=== PATIENT | male | born 1990 | race American Indian/Alaskan Native ===

== ENCOUNTER 2017-10-07 13:32 | Emergency (ER) | payer SELFPAY ==
--- NOTE | 2017-10-07 14:06 | Emergency Department Report ---
Chief Complaint: Rectal Pain Stated Complaint: PAINFUL RECTUM - HPI History of Present Illness: This is a 27, white male that presents with rectal pain 1 week. Patient stated he has been constipated for more than a week and has been taking over-the -counter laxatives and stool softener with no relief. Patient also then stated that he seen slight blood and pus in the bowel movement and describes it as hard. Patient denies any abdominal pain, chest pain, shortness of breath, numbness, tingling, fever, chills, nausea or vomiting. - Exam Vital Signs: Vital Signs 10/07/17 13:54 Temperature 98 F Pulse Rate 73 Respiratory 18 Rate Blood Pressure 119/70 O2 Sat by Pulse 100 Oximetry Physical Exam: GENERAL: The patient is a well-developed, well-nourished female in no apparent distress. Patient is alert and acting appropriately for age. Alert and oriented 3, no apparent distress, normal gait, atraumatic. ABDOMEN: Soft, nontender, and nondistended. Positive bowel sounds. No hepatosplenomegaly was noted. No guarding or rebound tenderness, negative epigastric bruit. Negative psoas sign, negative call sign, negative McBurneys sign Rectal; about 1 cm induration and fluctuance to the rectal region. No hemorrhoids noted. MSE screening note: Focused history and physical exam performed. Due to findings the following was ordered: 1- This initial assessment/diagnostic orders/clinical plan/ treatment(s) is/are subject to change based on pt's health status, clinical progression and re- assessment by fellow clinical providers in the ED. Further treatment and workup at subsequent clinical provers discretion. Patient/guardians urged not to elope from ED as their condition may be serious if not clinically assessed and managed. 2-CBC, BMP, UA 3-abdominal x-ray ED Disposition for MSE Condition: Stable
[2017-10-07 14:20] LABS: Basophils % (Auto) 0.7 % (0.0-1.8); Eosinophils % (Auto) 0.5 % (0.0-4.3); Hematocrit 42.4 % (35.5-45.6); Hemoglobin 14.2 gm/dl (11.8-15.2); Mean Corpuscular HGB Conc 34 % (32-34); Mean Corpuscular Hemoglobin 31 pg (28-32); Mean Corpuscular Volume 92 fl (84-94); Platelet Count 249 K/mm3 (140-440); Red Cell Distribution Width 14.9 % (13.2-15.2); White Blood Count 11.2 K/mm3 (4.5-11.0)
[2017-10-07 14:36] LABS: Anion Gap 14 mmol/L; BUN/Creatinine Ratio 11; Blood Urea Nitrogen 9 mg/dL (9-20); Calcium 9.1 mg/dL (8.4-10.2); Carbon Dioxide 28 mmol/L (22-30); Chloride 101.9 mmol/L (98-107); Glucose 94 mg/dL (75-100); Potassium 4.7 mmol/L (3.6-5.0); Sodium 139 mmol/L (137-145)
--- NOTE | 2017-10-07 15:34 | XRay Report ---
ABDOMEN, 2 views: History: Abdominal pain. There is no evidence of free air beneath the diaphragms. The gas pattern within the abdomen is unremarkable. There is no evidence of bowel dilatation, significant air-fluid levels, or pathologic calcifications. Organ shadows are unremarkable. IMPRESSION: Unremarkable abdomen.
[2017-10-07 18:46] LABS: Bilirubin,Urine NEG (Negative); Blood,Urine NEG (Negative); Ketones,Urine NEG (Negative); Leukocyte Esterase,Urine NEG (Negative); Mucus,Urine 3+ /HPF; Nitrite,Urine NEG (Negative); Protein,Urine <15 mg/dL mg/dL (Negative)
--- NOTE | 2017-10-07 22:22 | Emergency Department Report ---
HPI - General Chief Complaint: Rectal Pain Time Seen by Provider: 10/07/17 21:58 - HPI HPI: Room 24 The patient is a 27-year-old male presented with a chief complaint of obstipation. The patient states he normally has a bowel movement 2-3 times a day. The patient states over the course of several weeks is noticed it is become progressively more and more difficult to have a bowel movement. The patient feels as though there is something physically obstructing passage of stool. The patient states this is a laxative and stool softeners but the mom was told that his passing continues to decrease. Patient is to nausea but denies vomiting. Patient does have rectal pain which believes comes from straining. Patient states his abdomen feels tight. Patient denies any history of fever Location: Abdomen, rectum Duration: Progressive over several weeks Quality: Constipation/tightness/pressure Severity: Severe Modifying factors: [see above] Context: [see above] Mode of transportation: Unknown ED Past Medical Hx - Past Medical History Previous Medical History?: No - Surgical History Past Surgical History?: No - Family History Family history: no significant - Social History Smoking Status: Current Every Day Smoker (1/7 pack per day) Substance Use Type: Alcohol (occasional) - Medications Home Medications: Home Medications Medication Instructions Recorded Confirmed Last Taken Type Hydrocortisone [Anucort-HC SUPPOS] 25 mg RC BID #20 supp.rect 10/08/17 Unknown Rx Lactulose [Cephulac] 20 gm PO QDAY PRN #90 ml 10/08/17 Unknown Rx ED Review of Systems ROS: Stated complaint: PAINFUL RECTUM Other details as noted in HPI Constitutional: denies: fever Gastrointestinal: abdominal pain, nausea, constipation. denies: vomiting Musculoskeletal: denies: back pain Physical Exam - Physical Exam Vital Signs: Vital Signs 10/07/17 10/07/17 13:54 18:26 Temperature 98 F 97.8 F Pulse Rate 73 68 Respiratory 18 18 Rate Blood Pressure 119/70 124/80 O2 Sat by Pulse 100 100 Oximetry Physical Exam: GENERAL: The patient is well-developed well-nourished male lying on stretcher not appearing to be in acute distress. [] HEENT: Normocephalic. Atraumatic. Extraocular motions are intact. Patient has moist mucous membranes. NECK: Supple. Trachea midline CHEST/LUNGS: Clear to auscultation. There is no respiratory distress noted. HEART/CARDIOVASCULAR: Regular. There is no tachycardia. There is no gallop rub or murmur. ABDOMEN: Abdomen is soft, nontender. Patient has normal bowel sounds. There is no abdominal distention. SKIN: There is no rash. There is no edema. There is no diaphoresis. NEURO: The patient is awake, alert, and oriented. The patient is cooperative. The patient has normal speech MUSCULOSKELETAL: There is no evidence of acute injury. RECTAL: Small fissure at 11:00. No external hemorrhoids visualized. Patient very tender to palpation during KEMAR. Uncertain how much it is secondary to apprehension/anxiety versus pain ED Course Vital Signs 10/07/17 10/07/17 13:54 18:26 Temperature 98 F 97.8 F Pulse Rate 73 68 Respiratory 18 18 Rate Blood Pressure 119/70 124/80 O2 Sat by Pulse 100 100 Oximetry ED Medical Decision Making - Lab Data Result diagrams: 10/07/17 14:08 10/07/17 14:08 Laboratory Tests 10/07/17 10/07/17 10/07/17 14:08 14:08 18:34 WBC 11.2 H RBC 4.60 Hgb 14.2 Hct 42.4 MCV 92 MCH 31 MCHC 34 RDW 14.9 Plt Count 249 Lymph % (Auto) 27.6 Stokes % (Auto) 9.4 H Eos % (Auto) 0.5 Baso % (Auto) 0.7 Lymph # 3.1 Stokes # 1.0 H Eos # 0.1 Baso # 0.1 Seg Neutrophils % 61.8 Seg Neutrophils # 6.9 Sodium 139 Potassium 4.7 Chloride 101.9 Carbon Dioxide 28 Anion Gap 14 BUN 9 Creatinine 0.8 Estimated GFR > 60 BUN/Creatinine Ratio 11 Glucose 94 Calcium 9.1 Urine Color Yellow Urine Turbidity Clear Urine pH 5.0 Ur Specific [place] 1.026 Urine Protein <15 mg/dl Urine Glucose (UA) Neg Urine Ketones Neg Urine Blood Neg Urine Nitrite Neg Urine Bilirubin Neg Urine Urobilinogen 4.0 Ur Leukocyte Esterase Neg Urine WBC (Auto) 1.0 Urine RBC (Auto) 2.0 Urine Mucus 3+ - Radiology Data Radiology results: report reviewed (CT abdomen and pelvis), image reviewed ( abdominal x-ray, CT abdomen and pelvis) interpreted by me: Abdominal [id number] bowel gas pattern. FINAL REPORT EXAM: CT ABDOMEN PELVIS W CON HISTORY: obstipation TECHNIQUE: Routine axial imaging was obtained of the abdomen and pelvis following the intravenous injection of 100 cc of Omnipaque 300. Oral contrast was also administered. Sagittal and coronal reconstructions were reviewed along with delayed imaging. FINDINGS: The lung bases are clear. Pleural fluid is not seen. The liver, gallbladder, pancreas, spleen, and adrenal glands appear normal. The kidneys enhance normally. The vascular structures enhance normally. The bowel loops are normal in caliber. There is a mild to moderate amount of retained fecal content in the colon. The appendix appears normal. There is no evidence of free fluid or adenopathy. In the pelvis the prostate gland and bladder appear normal. There are benign-appearing lymph nodes in the inguinal chains bilaterally. The skeletal structures appear normal. IMPRESSION: [id number] amount retained fecal content in the colon. No acute process in the abdomen and pelvis. Transcribed By: RB Dictated By: LAURA PAUL MD Electronically Authenticated By: LAURA PAUL MD Signed Date/Time: 10/07/172128 DD/ 28 TD/TT: 10/07/172128 - Differential Diagnosis constipation, internal hemorrhoids, colonic polyp, obstruction Critical care attestation.: If time is entered above; I have spent that time in minutes in the direct care of this critically ill patient, excluding procedure time. ED Disposition Clinical Impression: Constipation, Anal fissure Disposition: - TO HOME OR SELFCARE Is pt being admited?: No Does the pt Need Aspirin: No Condition: Stable Instructions: Constipation (ED), Anal Fissure (ED) Additional Instructions: Return to the emergency department immediately should you develop worsening symptoms, fever, inability to tolerate food or liquid or any other concerns. Prescriptions: Hydrocortisone [Anucort-HC SUPPOS] 25 mg RC BID #20 supp.rect Lactulose [Cephulac] 20 gm PO QDAY PRN #90 ml PRN Reason: Constipation Referrals: PRIMARY CARE, [Primary Care Provider] - 3-5 Days ELISHA XIONG MD [Staff Physician] - [facility] (Dr. Xiong is a price changer. Please follow up with him for further evaluation) Time of Disposition: 01:34
[2017-10-08 00:34] VITALS: BP 138/101
--- NOTE | 2017-10-08 01:31 | Cat Scan Report ---
FINAL REPORT EXAM: CT ABDOMEN PELVIS W CON HISTORY: obstipation TECHNIQUE: Routine axial imaging was obtained of the abdomen and pelvis following the intravenous injection of 100 cc of Omnipaque 300. Oral contrast was also administered. Sagittal and coronal reconstructions were reviewed along with delayed imaging. FINDINGS: The lung bases are clear. Pleural fluid is not seen. The liver, gallbladder, pancreas, spleen, and adrenal glands appear normal. The kidneys enhance normally. The vascular structures enhance normally. The bowel loops are normal in caliber. There is a mild to moderate amount of retained fecal content in the colon. The appendix appears normal. There is no evidence of free fluid or adenopathy. In the pelvis the prostate gland and bladder appear normal. There are benign-appearing lymph nodes in the inguinal chains bilaterally. The skeletal structures appear normal. IMPRESSION: [id number] amount retained fecal content in the colon. No acute process in the abdomen and pelvis.
== END 2017-10-08 01:50 | disposition home or self-care (01) ==
LOC: ED 13:32
DX: K59.00 Constipation, unspecified (principal); K60.2 Anal fissure, unspecified; F17.200 Nicotine dependence, unspecified, uncomplicated
CPT/HCPCS: 36415; 74020; 74177; 80048; 81001; 82271; 85025; 99284; Q9967